=== PATIENT | female | born 1950 | race Caucasian/White ===

== ENCOUNTER 2023-11-12 08:09 | Day surgery (SDC) | payer OTHER, MEDICARE ==
[~2023-11-12] VITALS: Ht 154.9 cm; Wt 65.5 kg
[2023-11-12] MEDS ORDERED: LIDOCAINE 2%, 20 ML MDV ONE (09:00)
[2023-11-12] MEDS ORDERED: NORMAL SALINE 10 ML VIAL ONE (09:00)
[2023-11-12] MEDS ORDERED: DEXAMETHASONE SOD PHOSPHATE 4 MG/ML VIAL ONE (09:00)
[2023-11-12] MEDS ORDERED: IOHEXOL 300 mgI/mL, 50 mL INFUS..BTL IV ONE (09:00)
[2023-11-12] MEDS: fentaNYL CITRATE/PF 100 MCG/2 ML AMP ONE (10:26)
[2023-11-12] MEDS: MIDAZOLAM HCL 5 MG/5 ML VIAL ONE (10:27)
[2023-11-12] MEDS: DIPHENHYDRAMINE INJ 50 MG/ML VIAL ONE (10:29)
[2023-11-12 15:00] VITALS: O2SAT 99
[2023-11-12 15:58] VITALS: BP_SYST 136; PULSE 62; RESP 16
== END 2023-11-12 11:25 | disposition home or self-care (01) ==
LOC: SDS 08:09 → SMU 08:10 → SDS 11:25
PROVIDERS: ATTEND Internal Medicine
DX: M47.26 Other spondylosis with radiculopathy, lumbar region (principal); M54.42 Lumbago with sciatica, left side; Z90.710 Acquired absence of both cervix and uterus; Z79.899 Other long term (current) drug therapy
CPT/HCPCS: 64483; 64484; J1100; J1200; J2250; J3010; Q9967; 76000; J2001